=== PATIENT | female | born 1940 | race Caucasian/White ===

== ENCOUNTER → 2018-06-10 | Outpatient (CLI) | payer OTHER | LOC: RAD 13:11 | DX: M47.816 Spondylosis without myelopathy or radiculopathy, lumbar region (principal); M43.16 Spondylolisthesis, lumbar region; M41.86 Other forms of scoliosis, lumbar region ==

== ENCOUNTER 2018-07-29 05:30 | Inpatient (IN) | payer OTHER ==
[2018-07-13 09:35] LABS: HEMATOCRIT 40.4 % (37.0-47.0); HEMOGLOBIN 13.6 gm/dL (12.0-15.0); MCH 30.4 pg (26.0-34.0); MCHC 33.8 g/dL (28.0-37.0); MCV 90.1 fL (80.0-100.0); RBC 4.48 mil/uL (4.20-5.00); RDW 12.8 % (10.5-14.5); URINE BILIRUBIN NEGATIVE (Negative); URINE BLOOD NEGATIVE (Negative); URINE CLARITY CLEAR; URINE COLOR YELLOW; URINE GLUCOSE-RANDOM* NEGATIVE (Negative); URINE KETONES NEGATIVE (Negative); URINE LEUKOCYTES-REFLEX NEGATIVE (Negative); URINE NITRITE-REFLEX NEGATIVE (Negative); URINE PROTEIN (DIPSTICK) NEGATIVE (Negative); URINE SPECIFIC GRAVITY <= 1.005 (1.005-1.035); URINE UROBILINOGEN 0.2 E.U./dl (0.2-1.0)
[2018-07-13 09:45] LABS: ALBUMIN 4.2 g/dL (3.4-5.0); CREATININE 0.9 mg/dL (0.6-1.0); POTASSIUM 3.6 mmol/L (3.5-5.1)
[2018-07-13 09:48] LABS: PROTIME 9.5 Seconds (9.3-11.4)
[~2018-07-29] VITALS: Ht 165.1 cm; Wt 49.4 kg
--- NOTE | ~2018-07-29 | O ---
[facility] [place] [address] OPERATIVE REPORT Name: ORA PAIGE Room #: 150-1 ADM IN M.R.#: [id number] Admission: 07/29/18 Attend Phys: Blaise Sheth MD Discharge: Date of : 40 Report #: [id number] THIS REPORT FOR: //name// CC: Blaise Miner DATE OF SERVICE: 07/29/2018 PREOPERATIVE DIAGNOSIS: Bilateral knee osteoarthritis. POSTOPERATIVE DIAGNOSIS: Bilateral knee osteoarthritis. PROCEDURE: 1. Right total knee arthroplasty using Navio robotic child nutrition assistant. 2. Left knee intraarticular cortisone injection. SURGEON: Blaise Sheth MD. ASSOCIATE SOFTWARE DEVELOPER: Sachi Mcgregor PA-C. INDICATIONS FOR ASSOCIATE SOFTWARE DEVELOPER: Throughout the case, extensive retraction and manipulation of the knee was required. This was afforded to me by my child nutrition assistant. ANESTHESIA: LMA with an adductor canal block. IMPLANTS: [employer] size 6 Legion cobalt chrome posterior stabilized femur, a size 4 tibia, a size 9 polyethylene and a size 32 patella. TOURNIQUET TIME: 65 minutes. ESTIMATED BLOOD LOSS: 25 mL. COMPLICATIONS: None. SPECIMENS: None. CONDITION UPON LEAVING THE OPERATING ROOM: Stable. INDICATION FOR PROCEDURE: The patient is a 78-year-old female with severe bilateral knee osteoarthritis. She had failed conservative treatment for this and after discussion with her, she elected for right total knee arthroplasty. She is also requesting a cortisone injection in the left knee while under anesthesia. DESCRIPTION OF PROCEDURE: Risks, benefits, alternatives, complications were discussed in detail with the patient including but not limited to risk of [facility] [address] [place] [address] OPERATIVE REPORT Name: ORA PAIGE Room #: 150-1 ADM IN M.R.#: [id number] Admission: 07/29/18 Attend Phys: Blaise Sheth MD Discharge: Date of : 40 Report #: [id number] anesthesia, risk of damage to nerves, arteries, blood vessels, risk for infection, bleeding, risk for continued knee pain and need for reoperation. Informed consent was obtained from the patient. The right knee was appropriately marked in the preoperative holding area. IV Ancef was given for preoperative antibiotics. Adductor canal block was placed by Anesthesia. She was brought to the operating room and placed in supine position on operating room table. LMA anesthesia was induced without complication. Tourniquet was placed on the right thigh. Right lower extremity was prepped and draped in normal sterile fashion. Timeout was performed properly identifying the patient and procedure as well as the instrumentation and implants. All in the operating room were in agreement. Right lower extremity was exsanguinated, tourniquet was inflated. Tourniquet time 65 minutes. Standard midline approach to the knee was made with 10 blade through the skin. Dissection was taken down sharply to the fascia and deep flaps were developed medially and laterally. Fresh 10 blade was used to make a medial parapatellar arthrotomy and the knee was inspected. There was severe tricompartment osteoarthritis. Anterior horns of meniscus were removed sharply. ACL and PCL were removed sharply. Reference pins were then placed in the femur and the tibia and the knee was digitally mapped using the [employer] robotic system. We sized a size 6 femur and a size 4 tibia. After acceptance of the intraoperative plan, the distal femoral cut was made using the Navio bur. The size 6, 4-in-1 cutting block was placed on the femur and the anterior, posterior and chamfer cuts were made. After this, attention was turned to the tibia. The remainder of the menisci removed with Bovie cautery. Tibial resection guide was pinned in place using the [employer] robotic child nutrition assistant for placement. Tibial resection was made. After this, flexion and extension gaps were checked and found to have good balance in flexion and extension both medially and laterally. The tibia was sized, found to be a size 4, size 4 tibial trial was pinned and punched. A size 6 femoral trial was placed and the box cut was made. This was then trialed with a size 9 polyethylene. The knee was found to have good balance in flexion and extension both medially and laterally to manual as well as digital testing using the Navio. 9 mm was taken off the posterior surface of the patella and a size 32 patellar trial button was placed. Knee was taken through range of motion, found to be stable, found to have good patellar tracking. Trial components were removed. Bony ends were thoroughly irrigated with normal saline. A final size 4 tibia, size 6 Legion narrow cobalt chrome posterior stabilized femur and a size 32 patella were cemented in place using standard cementation techniques. While the cement cured, a periarticular injection consisting of morphine, ropivacaine, epinephrine and Toradol was placed around the knee joint capsule. After the cement cured, the tourniquet was deflated. Hemostasis was obtained with Bovie cautery and final size 9 polyethylene was placed. A gram of vancomycin was placed deep in the joint. Fascia was closed with 0 Vicryl, skin was closed with 2-0 Vicryl, 3-0 Monocryl. Dermabond and a NADEGE dressing was applied. The [address] [address] OPERATIVE REPORT Name: ORA PAIGE Room #: 150-1 [facility] IN M.R.#: [id number] Admission: 07/29/18 Attend Phys: Blaise Sheth MD Discharge: Date of : 40 Report #: [id number] patient tolerated this procedure well and went to recovery room under care of anesthesia postoperatively. By: [id number] Blaise Sheth MD /nt
--- NOTE | ~2018-07-29 | EKG ---
[address] [address] ELECTROCARDIOGRAM REPORT Name: ORA PAIGE Room #: PRE [facility]#: [id number] Admission: Attend Phys: Blaise Sheth MD Discharge: Date of : 40 Report #: [id number] THIS REPORT FOR: //name// [facility] Test Date: 2018-07-13 Test Time: 09:32:43 Pat Name: ORA PAIGE Department: Room: Gender: F Radiology Services Manager: lynsey : 1940 Requested By: Blaise Sheth Order Number: [id number] MD: Howard Galvan Measurements Intervals [place] Rate: 63 P: 51 TN: 145 QRS: 27 QRSD: 99 T: 43 QT: 452 QTc: 463 Interpretive Statements Sinus rhythm Normal tracing No previous ECG available for comparison Electronically Signed On 07-13-2018 17:08:07 CDT by Howard Galvan [email or web address] <ELECTRONICALLY SIGNED> By: Howard Galvan MD, [facility] 07/13/18 1708 0932 0932 Howard Galvan MD, FACC /EPI
[~2018-07-29 05:30] MED LIST: CALCIUM CITRAT1 EAC5 PO; CELEBREX 200 M200 M1 PO; LEXAPRO 10 MG T10 M1 PO; MAXZIDE-25 MG1 EACH PO; MIRALAX17 GM PO; OMEGA-31000 M1 PO; PRAVACHOL80 MG PO; RESTASIS1 EACH OPHTHALMIC; SINEMET 25-1001 EAC1 PO; SYSTANE BALANCE10 ML OPHTHALMIC; TUMS PO; VITAMIN D32000 UNI1 PO
[2018-07-29 10:07] VITALS: BP 131/70
[2018-07-29 15:39] VITALS: BP 130/64
[2018-07-29 20:10] VITALS: BP 120/66
[2018-07-30 05:25] VITALS: BP 128/75
[2018-07-30 05:54] LABS: HEMATOCRIT 30.7 % (37.0-47.0); HEMOGLOBIN 10.6 gm/dL (12.0-15.0); MCH 30.8 pg (26.0-34.0); MCHC 34.6 g/dL (28.0-37.0); MCV 89.1 fL (80.0-100.0); RBC 3.44 mil/uL (4.20-5.00)
[2018-07-30 07:20] VITALS: BP 99/52
[2018-07-30] MEDS ORDERED: TRI-BUFFERED A325 M1 PO (13:27)
[2018-07-30] MEDS ORDERED: NEURONTIN 300300 M1 PO (13:27)
[2018-07-30 13:38] VITALS: BP 99/52
[2018-07-30 14:09] VITALS: BP 99/52
== END 2018-07-30 19:33 | disposition home health service (06) | DRG 470 ==
LOC: 4E 05:30 → TBA 05:30 → PRE 05:41 → 4E 15:31
PROVIDERS: Orthopaedic Surgery
PROC: 3E0U33Z Introduction of Anti-inflammatory into Joints, Percutaneous Approach (ICD-10-PCS; principal; 2018-07-29)
PROC: 0SRC0J9 Replacement of Right Knee Joint with Synthetic Substitute, Cemented, Open Approach (ICD-10-PCS; principal; 2018-07-29)
PROC: XR2G021 Monitoring of Right Knee Joint using Intraoperative Knee Replacement Sensor, Open Approach, New Technology Group 1 (ICD-10-PCS; principal; 2018-07-29)
DX: M17.11 Unilateral primary osteoarthritis, right knee (principal); I10 Essential (primary) hypertension; G20 Parkinson's disease; G62.9 Polyneuropathy, unspecified; H40.9 Unspecified glaucoma; Z79.82 Long term (current) use of aspirin; Z79.899 Other long term (current) drug therapy; Z98.49 Cataract extraction status, unspecified eye; Z82.49 Family history of ischemic heart disease and other diseases of the circulatory system; Z88.1 Allergy status to other antibiotic agents; Z88.8 Allergy status to other drugs, medicaments and biological substances
CPT/HCPCS: 10783; 50010; 50101; 50415; 50954; 51130; 51225; 51771; 53000; 53078; 53364; 54118; 56527; 56528; 57095; 57103; 57109; 57110; 57113; 57127; 57180; 62110; 62900; 64041; 70005